=== PATIENT | female | born 1980 | race Caucasian/White ===

== ENCOUNTER 2017-01-08 08:36 | Emergency (ER) | payer MEDICAID ==
[~2017-01-08] VITALS: Ht 167.6 cm; Wt 66.0 kg
[2017-01-08 08:37] VITALS: BP 122/71; PULSE 82; RESP 16; RESP 20; TEMP 97.8; O2SAT 97
[2017-01-08] MEDS ORDERED: LAMO150 PO (08:57)
[2017-01-08] MEDS ORDERED: GABA300C5 PO (08:57)
[2017-01-08 09:00] VITALS: RESP 20; O2SAT 96
[2017-01-08] MEDS ORDERED: methylPREDNISolone SOD SUCC 125 MG/2 ML VIAL IV PUSH ONE (09:00)
[2017-01-08] MEDS ORDERED: SODIUM CHLORIDE 0.9% FLUSH 10 ML FLUSH IVF PRN (09:00)
[2017-01-08] MEDS: RESP: ALBUTEROL 2.5 MG/3 ML NEB (SCH) INH ×2 (09:01→09:02)
[2017-01-08 09:03] LABS: AUTOMATED NEUTROPHIL # 3.7 TH/MM3 (1.8-7.7); BASOPHIL # 0.1 TH/MM3 (0-0.2); BASOPHIL % 1.7 % (0.0-2.0); EOSINOPHIL # 0.1 TH/MM3 (0-0.4); EOSINOPHIL % 2.2 % (0.0-4.0); HEMO FLAGS DIFF FINAL; LYMPH % 27.6 % (9.0-44.0); LYMPHOCYTE # 1.7 TH/MM3 (1.0-4.8); MEAN CELL VOLUME 96.6 FL (80.0-100.0); MEAN CORPUSCULAR HEMOGLOBIN 31.6 PG (27.0-34.0); MEAN CORPUSCULAR HGB CONC 32.8 % (32.0-36.0); MONO % 6.3 % (0.0-8.0); NEUT % 62.2 % (16.0-70.0); PLATELET COUNT 256 TH/MM3 (150-450); RED BLOOD COUNT 4.56 MIL/MM3 (4.00-5.30); RED CELL DISTRIBUTION WIDTH 13.6 % (11.6-17.2)
[2017-01-08 09:09] LABS: CHLORIDE 104 MEQ/L (98-107); POTASSIUM 4.2 MEQ/L (3.5-5.1); SODIUM (NA) 137 MEQ/L (136-145)
[2017-01-08 09:12] LABS: ANION GAP 8 MEQ/L (5-15); BICARBONATE 25.2 MEQ/L (21.0-32.0); BLOOD UREA NITROGEN 6 MG/DL (7-18)
[2017-01-08 09:15] LABS: GLOMERULAR FILTRATION RATE 94 ML/MIN (>89)
--- NOTE | 2017-01-08 09:23 | PD ---
HPI Chief Complaint: Respiratory Symptoms Time Seen by Provider: 08:49 Travel History International Travel<30 days: No Contact w/Intl Traveler<30days: No Traveled to known affect area: No History of Present Illness HPI c/o sob not improved by albuterol inhaler at home. states h/o copd and active smoker. patient also c/o left sided sharp cp, worse with breathing, 8/10, assoc with coughing productive of yellow sputum. denies fever/n/v/d/abd pain/ lemus at this time. also no apparent alleviating/aggravating factors PFSH Past Medical History Asthma: Yes High Cholesterol: Yes COPD: Yes Diminished Hearing: No Respiratory: Yes (COPD) Pancreatitis: Yes Tetanus Vaccination: Unknown ?: Not LMP: 12/20/2016 Tubal Ligation: Yes Past Surgical History Appendectomy: Yes Tonsillectomy: Yes Social History Alcohol Use: No Tobacco Use: Yes (02/11 PPD) Substance Use: No Allergies-Medications (Allergen,Severity, Reaction): Coded Allergies: adhesive (Verified Allergy, Intermediate, RASH, 01/08/17) latex (Verified Allergy, Intermediate, RASH, 01/08/17) Reported Meds & Prescriptions Reported Meds & Active Scripts Active Reported Gabapentin 300 Mg Cap 300 Mg PO BID Lamictal (Lamotrigine) 150 Mg Tab 150 Mg PO BID Review of Systems General / Constitutional: No: Fever Eyes: No: Visual changes HENT: No: Headaches Cardiovascular: Positive: Chest Pain or Discomfort Respiratory: Positive: Cough, Shortness of Breath, Wheezing Gastrointestinal: No: Abdominal Pain Genitourinary: No: Dysuria Musculoskeletal: No: Pain Skin: No Rash Neurologic: No: Weakness Psychiatric: No: Depression Endocrine: No: Polydipsia Hematologic/Lymphatic: No: Easy Bruising Physical Exam Narrative GENERAL: SKIN: Warm and dry. HEAD: Atraumatic. Normocephalic. EYES: Pupils equal and round. No scleral icterus. No injection or drainage. ENT: No nasal bleeding or discharge. Mucous membranes pink and moist. NECK: Trachea midline. No JVD. CARDIOVASCULAR: Regular rate and rhythm. RESPIRATORY: No accessory muscle use. scattered wheezing throughout GASTROINTESTINAL: Abdomen soft, non-tender, nondistended. MUSCULOSKELETAL: Extremities without clubbing, cyanosis, or edema. No obvious deformities. NEUROLOGICAL: Awake and alert. No obvious cranial nerve deficits. Motor grossly within normal limits. Five out of 5 muscle strength in the arms and legs. Normal speech. PSYCHIATRIC: Appropriate mood and affect; insight and judgment normal. Data Data Last Documented VS Vital Signs Date Time Temp Pulse Resp B/P (MAP) Pulse Ox O2 Delivery O2 Flow Rate FiO2 01/08/17 09:00 20 96 Nasal Cannula 2.00 01/08/17 08:37 97.8 82 122/71 (88) Orders Orders Complete Blood Count With Diff (01/08/17 08:49) Basic Metabolic Panel (Bmp) (01/08/17 08:49) B-Type Natriuretic Peptide (01/08/17 08:49) Troponin I (01/08/17 08:49) Iv Access Insert/Monitor (01/08/17 08:49) Electrocardiogram (01/08/17 08:49) Ecg Monitoring (01/08/17 08:49) Oximetry (01/08/17 08:49) Oxygen Administration (01/08/17 08:49) Ct Pulmonary Angiogram (01/08/17 08:49) Sodium Chloride 0.9% Flush (Ns Flush) (01/08/17 09:00) Methylprednisolone So Succ Inj (Solumedr (01/08/17 09:00) Albuterol Neb (Albuterol Neb) (01/08/17 09:00) Ed Urine Pregnancytest Poc (01/08/17 08:49) Ketorolac Inj (Toradol Inj) (01/08/17 10:00) Iohexol 350 Inj (Omnipaque 350 Inj) (01/08/17 10:04) Labs Laboratory Tests Test 01/08/17 09:00 White Blood Count 6.0 TH/MM3 Red Blood Count 4.56 MIL/MM3 Hemoglobin 14.4 GM/DL Hematocrit 44.0 % Mean Corpuscular Volume 96.6 FL Mean Corpuscular Hemoglobin 31.6 PG Mean Corpuscular Hemoglobin Concent 32.8 % Red Cell Distribution Width 13.6 % Platelet Count 256 TH/MM3 Mean Platelet Volume 7.9 FL Neutrophils (%) (Auto) 62.2 % Lymphocytes (%) (Auto) 27.6 % Monocytes (%) (Auto) 6.3 % Eosinophils (%) (Auto) 2.2 % Basophils (%) (Auto) 1.7 % Neutrophils # (Auto) 3.7 TH/MM3 Lymphocytes # (Auto) 1.7 TH/MM3 Monocytes # (Auto) 0.4 TH/MM3 Eosinophils # (Auto) 0.1 TH/MM3 Basophils # (Auto) 0.1 TH/MM3 CBC Comment DIFF FINAL Differential Comment Blood Urea Nitrogen 6 MG/DL Creatinine 0.70 MG/DL Random Glucose 89 MG/DL Calcium Level 8.6 MG/DL Sodium Level 137 MEQ/L Potassium Level 4.2 MEQ/L Chloride Level 104 MEQ/L Carbon Dioxide Level 25.2 MEQ/L Anion Gap 8 MEQ/L Estimat Glomerular Filtration Rate 94 ML/MIN Troponin I LESS THAN 0.02 NG/ML B-Type Natriuretic Peptide 23 PG/ML [facility] Medical Decision Making Medical Screen Exam Complete: Yes Emergency Medical Condition: Yes Medical Record Reviewed: Yes Interpretation(s) pulse ox: normal pulse ox 98% ra, excellent pleth wave. ekg: nsr 75, nl intervals, nonstemi Differential Diagnosis pe v pna v pericardial effusion v pleural effusion v consolidation Narrative Course NL BNP, NEG EKG AND TROPONIN FOR NC, NO ANEMIA, NO DEHYDRATION, NO ELECTROLYTE ABNORMALITY.....CT CHEST IS NEG FOR PE, PERICARDIAL EFFUSION, PLEURAL EFFUSION , CONSOLIDATION OR INFILTRATE.... Diagnosis Primary Impression: Pleurisy Patient Instructions: General Instructions, Pleurisy (ED) Scripts Codeine-Acetaminophen (Codeine-Acetaminophen) 30-300 mg Tab 1 TAB PO Q4H Y for PAIN, #12 TAB 0 Refills Prov: Tayo Fernandes MD 01/08/17 Benzonatate (Tessalon Perles) 100 Mg Cap 100 MG PO TID Y for COUGH, #15 CAP 0 Refills Prov: Tayo Fernandes MD 01/08/17 Azithromycin (Zithromax Z-Ed) 250 Mg Dspk 250 MG PO DIRECTED for Infection, #1 DSPK 0 Refills 500 MG (2 tabs) day 1, then 1 tab days 2-5. Prov: Tayo Fernandes MD 01/08/17 Disposition: 01 DISCHARGE HOME Condition: Stable Tayo Fernandes MD Jan 08, 2017 09:23
--- NOTE | 2017-01-08 09:34 | EKG ---
Date Performed: 01/08/2017 Time Performed: 09:08:40 PTAGE: 36 years EKG: Sinus rhythm NORMAL ECG NO PREVIOUS TRACING DOCTOR: Ari Laureano Interpretating Date/Time 01/08/2017 09:33:12
[2017-01-08] MEDS ORDERED: KETOROLAC TROMETHAMINE 30 MG/ML (IVP) VIAL IV PUSH ONE (10:00)
[2017-01-08] MEDS ORDERED: IOHEXOL 350 MG/ML 10 ML VIAL (for RAD DIAG) IVCONTRAST ONE (10:04)
--- NOTE | 2017-01-08 10:23 | RADRPT ---
EXAM DATE/TIME: 01/08/2017 09:54 [place] COMPARISON: No previous studies available for comparison. INDICATIONS : Difficulty breathing. Left sided chest pain for today. IV CONTRAST: 75 cc Omnipaque 350 (iohexol) IV RADIATION DOSE: 8.19 CTDIvol (mGy) MEDICAL HISTORY : Chronic obstructive pulmonary disease. Pancreatitis. Asthma. SURGICAL HISTORY : Appendectomy. Tubal ligation. ENCOUNTER: Initial ACUITY: 3 days PAIN SCALE: 7/10 LOCATION: Left chest TECHNIQUE: Volumetric scanning of the chest was performed using a pulmonary embolism protocol MIP images were re constructed. Using automated exposure control and adjustment of the mA and/or kV according to patien t size, radiation dose was kept as low as reasonably achievable to obtain optimal diagnostic quality images. DICOM format image data is available electronically for review and comparison. Follow-up recommendations for detected pulmonary nodules are based at a minimum on nodule size and pa tient risk factors according to Fleischner Society Guidelines. FINDINGS: PULMONARY ARTERIES: No filling defects are seen in the pulmonary arteries through the segmental level. LUNGS: There is no consolidation or pneumothorax . No concerning pulmonary nodule is visualized. PLEURAE: There is no pleural thickening or pleural effusion. MEDIASTINUM: There is good visualization of the great vessels of the middle mediastinum. No evidence of mediastin al or hilar adenopathy/mass. MUSCULOSKELETAL: Mild degenerative changes. MISCELLANEOUS: The visualized upper abdominal organs demonstrate no acute abnormality. CONCLUSION: Negative for central pulmonary emboli. I do not see etiology for the left-sided chest pain. Gagandeep Melara MD FACR on January 08, 2017 at 10:20 Board Certified Radiologist. This report was verified electronically.
[2017-01-08] MEDS ORDERED: BENZ100 PO (10:31)
[2017-01-08] MEDS ORDERED: CODE30TA2 PO (10:31)
[2017-01-08] MEDS ORDERED: ZITHTAB PO (10:31)
[2017-01-08 10:38] VITALS: BP 112/66
== END 2017-01-08 10:45 | disposition home or self-care (01) ==
LOC: PHED 08:36
DX: R09.1 Pleurisy (principal); J44.9 Chronic obstructive pulmonary disease, unspecified; F17.210 Nicotine dependence, cigarettes, uncomplicated
CPT/HCPCS: 71275; 80048; 83880; 84484; 84703; 85025; 93005; 94640; 94664; 96374; 96375; 99285; J1885; J2930; J7613; Q9967